=== PATIENT | male | born 1960 | race Caucasian/White ===

== ENCOUNTER 2024-01-03 11:11 | Outpatient (CLI) | payer SELFPAY ==
[2024-01-03 18:23] LABS: Basophils # 0.1 K/mm3 (0-0.2); Basophils % 0.8 % (0.1-2.0); Eosinophils # 0.2 K/mm3 (0.0-0.4); Eosinophils % 2.1 % (0.1-12.0); Hematocrit 47.6 % (42.0-52.0); Hemoglobin 15.5 g/dL (14.1-18.0); Lymphocytes # 2.2 K/mm3 (0.7-4.5); Lymphocytes % 25.7 % (10-50); Mean Corpuscular HGB Conc 32.5 g/dL (31.8-35.4); Mean Corpuscular Hemoglobin 29.8 pg (27.0-31.2); Mean Corpuscular Volume 91.7 fl (80-94); Mean Platelet Volume 9.3 fl (7.4-10.4); Monocytes # 0.6 K/mm3 (0.1-1.0); Monocytes % 6.5 % (1.7-9.3); Neutrophils # 5.7 K/mm3 (1.8-7.8); Neutrophils % 64.9 % (37.0-80.0); Platelet Count 278 K/mm3 (142-424); Red Cell Distribution Width 13.9 % (11.5-17.5); White Blood Count 8.7 K/mm3 (4.8-10.8)
[2024-01-03 19:05] LABS: Hemoglobin A1C 8.3 % (4.0-6.0)
[2024-01-03 19:08] LABS: Alanine Aminotransferase 55 U/L (12-78); Albumin Level 3.9 g/dl (3.5-5.0); Albumin/Globulin Ratio 1.3 (1.1-1.8); Alkaline Phosphatase 88 U/L (38-126); Anion Gap 14.3 mEq/L (5-15); Aspartate Amino Transferase 37 U/L (17-59); Bilirubin,Total 0.6 mg/dl (0.2-1.3); Blood Urea Nitrogen 19 mg/dl (9-20); Calcium 9.2 mg/dl (8.4-10.2); Carbon Dioxide 28 mmol/L (22.0-30.0); Chloride 99 mmol/L (98-107); Chol/HDL Ratio 3.9 (1-3.5); Cholesterol 147 mg/dl (140-200); Estimated Glomerular Filt Rate 85 ml/min (>60); GFR (African American) 103 ML/MIN (>60); Glucose 289 mg/dl (74-100); HDL Cholesterol 38 mg/dl (40-60); Potassium 4.3 mmoL/L (3.5-5.1); Sodium 137 mmol/L (136-145); Total Protein,Serum 6.9 g/dl (6.3-8.2); Triglycerides 103 mg/dl (30-150); VLDL Cholesterol 21 mg/dL (0-40)
[2024-01-03 19:21] LABS: Direct LDL Cholesterol 92.43 mg/dL (100-129)
[2024-01-03 19:30] LABS: 25-OH Vitamin D, Total 62.1 ng/mL (30-100)
[2024-01-03 19:43] LABS: Prostate Specific Ag Screen 0.5 ng/ml (0.0-4.0); Thyroid Stimulating Hormone 1.78 uIU/mL (0.465-4.68)
[2024-01-03 20:02] LABS: Vitamin B12 389 pg/mL (239-931)
== END 2024-01-03 23:59 | disposition home or self-care (01) ==
LOC: LAB.DROPOF 01-04 11:12
PROVIDERS: PCP Nurse Practitioner; Visit Provider Nurse Practitioner
DX: I10 Essential (primary) hypertension (principal); E66.9 Obesity, unspecified; Z68.38 Body mass index [BMI] 38.0-38.9, adult; N40.0 Benign prostatic hyperplasia without lower urinary tract symptoms; I51.7 Cardiomegaly; R06.02 Shortness of breath; R73.01 Impaired fasting glucose
CPT/HCPCS: 80050; 80053; 80061; 82306; 82607; 83036; 84443; 85025; G0103

== ENCOUNTER 2024-01-30 10:58 | Outpatient (CLI) | payer SELFPAY ==
[2024-01-30 19:41] LABS: Anion Gap 17.2 mEq/L (5-15); Blood Urea Nitrogen 23 mg/dl (9-20); Calcium 9.7 mg/dl (8.4-10.2); Carbon Dioxide 25 mmol/L (22.0-30.0); Chloride 102 mmol/L (98-107); Estimated Glomerular Filt Rate 75 ml/min (>60); GFR (African American) 91 ML/MIN (>60); Glucose 97 mg/dl (74-100); Potassium 4.2 mmoL/L (3.5-5.1); Sodium 140 mmol/L (136-145)
== END 2024-01-30 23:59 | disposition home or self-care (01) ==
LOC: LAB.DROPOF 01-31 10:58
PROVIDERS: PCP Nurse Practitioner; Visit Provider Nurse Practitioner
DX: E11.9 Type 2 diabetes mellitus without complications (principal)
CPT/HCPCS: 80048

== ENCOUNTER 2024-05-10 06:12 | Outpatient (CLI) | payer MEDICARE, SELFPAY ==
--- NOTE | 2024-05-10 | CA_ITS ---
APPROVED REPORT Exam: Exercise Treadmill Technologist: Kandice Doran, Ht: 6 ft 0 in Wt: 261 lbs BSA: 2.39 m2 HR: 59 bpm BP: 175/79 mmHg Rhythm: Nsr, poor r wave progression Indications: SOA, ABN EKG Medical History Medical History: HTN, Diabetes Medications: Amlodipine,,,,, Lisinopril,,,,, Metformin,,,,, Furosemide,,,,, Allergies: hydrochlorothiazide Cardiac Risk Factors: HTN, Diabetes, FHX of CAD Stress Test Details Test: Mesfin, Exercise stress testing was performed using a modified Mesfin protocol. HR Resting HR: 65 bpm Max Heart Rate (APMHR): 155 bpm Max HR Achieved: 151 bpm Target HR (85% APMHR): 132 bpm % of APMHR: 97 Recovery HR: 84 bpm HR response to stress: Normal HR response to stress BP Resting BP: 175.0/79 mmHg Max BP: 244/92 mmHg Recovery BP: 167.0/79.0 mmHg BP response to stress: Abnormal hypertensive response to stress. ECG Resting ECG: NSR, poor r wave progression Stress EC.[address] depression Arrhythmia: Occasional PVCs Recovery ECG: Return to baseline within 3 minutes of recovery Recovery Arrhythmia: PVCs Clinical Exercise duration: 06:45 min Highest Stage Achieved: Exercise capacity: 7.0 METs Overall Exercise Capacity for Age: Average Stress ECG Conclusion Pt exercised 6:45 on Mesfin protocol. The patient had average exercise capacity compared to age and sex matched peers. He had a normal HR, but exaggerated hypertensive BP, response to exercise. Max HR: 141 % of PM: 91% Max BP: 244/92 Mets: 7.0 Test stopped due to: fatigue, dyspnea. No chest pain. Ectopy: Occasional PVCs ST changes: 0.[address] depression Conclusion: Average exercise capacity. No significant ischemic ECG changes at peak stress. Myoview images reported separately. Hypertensive BP response to exercise. BP control is recommended. Test Summary REST . . . . . . . Standing REST . . . . . . . Sitting REST 04:23 0.0 0.0 65 . 175/ 79 . . Stage 1 01:00 10.0 1.7 87 . . . . Stage 1 02:00 10.0 1.7 101 . . . . Stage 1 03:00 10.0 1.7 105 . 220/ 90 . . Stage 2 01:00 12.0 2.5 115 . . . . Stage 2 02:00 12.0 2.5 121 . . . . Stage 2 03:00 12.0 2.5 132 . 244/ 92 . . Stage 3 00:45 14.0 3.4 141 . . . Stop exercise at 06:45 RECOVERY 01:00 0.0 0.0 124 . . . . RECOVERY 02:00 0.0 0.0 102 . 216/ 90 . . RECOVERY 03:00 0.0 0.0 90 . 199/ 84 . . RECOVERY 04:00 0.0 0.0 85 . 199/ 84 . . RECOVERY 05:00 0.0 0.0 80 . 167/ 79 . . RECOVERY 05:18 0.0 0.0 81 . 167/ 79 . . Electronically signed by : Hilary Bartholomew MD 05/13/2024 22:49:19
--- NOTE | 2024-05-10 06:20 | NM_ITS ---
APPROVED REPORT Exam: Nuclear Stress Test Indication: high BP..family hx Patient Location: Outpatient Stress Tech: Kandice Doran HI Tech:Lorena SyedringtonDESTIN RT(R)(N) Ht: 6 ft 0 in Wt: 261 lbs HR: 65 bpm BP: 175/79 mmHg BSA: 2.39 m2 Rhythm: NSR TID: 1.16 History: high BP..family hx Procedure: Patient exercised on Mesfin protocol 6:45 minutes and sec, resting heart rate 65 bpm, resting blood pressure 175/79 mmHg, with exercise maximum heart rate achived was 151 bpm which is 97 % of the maximum predicted heart rate and blood pressure was 244/92 mmHg. Test was stopped due to fatigue. Patient denied any complaint of chest pain. Patient has average exercise capacity, achieved 7.0 METs of workload on treadmill, the blood pressure response to exercise was exaggerated. Cardiac Stress and Resting SPECT Images: Cardiac Stress and Resting SPECT images were obtained using technetium 99m Myoview 32.4 mCi stress and 10.13 mCi at rest. Resting and stress imaging in supine and prone position demonstrate no evidence of fixed or reversible perfusion defects. Gated imaging demonstrates normal global and regional LV systolic function. LVEF is calculated at 64%. Conclusion: No evidence of fixed or reversible perfusion defects. Gated imaging demonstrates normal global and regional LV systolic function. LVEF is calculated at 64%. Of note, the patient had a hypertensive BP response to exercise. BP control is recommended. Electronically signed by : Hilary Bartholomew MD 05/13/2024 22:51:08
--- NOTE | 2024-05-10 07:39 | CA_ITS ---
APPROVED REPORT EXAM: Comprehensive 2D, Doppler, and color-flow Echocardiogram Resort Keeper: Lis Johnson RVT Ht: 6 ft 0 in Wt: 265lbs BSA: 2.40 BP: 166/83 mmHg Indications: CP,CARDIOMEGALY,VERN,ABN EKG,DM 2D Dimensions LA Volume 75.40 mL LA Volume Index 31.42 mL/m2 (M/F) 16-34 M-Mode Dimensions RVDd 3.15 cm (0.9-2.6) LA Diam 3.11 cm (1.9-4.0) LVDd 3.54 cm (3.5-5.7) LVDs 2.41 cm (3.5-5.7) IVSd 1.97 cm (0.6-1.1) PWd 0.74 cm (0.6-1.1) EF (Teich) 61.00% FS 31.90% EDV (Teich) 52.30 mL ESV (Teich) 20.40 mL LV Diastology E Decel Time 273 (160-240 msec) E/A Ratio 0.8 Aortic Valve BJ Index 1.41 cm2/m2 AoV Peak Jairo. 124.0 (50-130 cm/s) AO Peak GR. 6.20 mmHg AO Mean GR. 3.80 (<5 mmHg) AO VTI 27.1 (18-25 cm) BJ (VTI) 3.47 (2.5-4.5 cm2) Mitral Valve MV E Max Jairo. 72.0 (40-130 cm/s) MV A Velocity 89.0 (40-130 cm/s) E/A Ratio 0.81 MV PHT 80.0 ms Pulmonary Valve PV Peak Velocity 78.0 (50-150 cm/s) Tricuspid Valve TR P. Velocity 284.00 cm/s RAP Estimate 10.00 mmHg RVSP 42.30 mmHg Left Ventricle The left ventricle is normal size. The left ventricular systolic function is normal. The left ventricular ejection fraction is within the normal range. There is increased LV wall thickness. There is normal LV segmental wall motion. Transmitral Doppler flow pattern suggests impaired LV relaxation. LVEF is 55%. Right Ventricle Right ventricle is mildly dilated. The right ventricular systolic function is normal. Atria The left atrium size is normal. The right atrium size is normal. There is no Doppler evidence of interatrial shunt. Aortic Valve The aortic valve opens well. There is no aortic valvular stenosis. No aortic regurgitation is present. Mitral Valve The mitral valve is normal in structure. No evidence of mitral valve stenosis. Trace mitral regurgitation. Tricuspid Valve The tricuspid valve leaflets are thin and pliable. Mild tricuspid regurgitation. RVSP is 30-35 mmHg. Pulmonic Valve The pulmonary valve is normal in structure. Trace pulmonic regurgitation. Great Vessels The aortic root is normal in size. The ascending aorta is normal in size. IVC is normal in size and collapses >50% with inspiration. Pericardium There is no pericardial effusion. Other Information Study Quality: Technically Difficult Conclusion Technically difficult study due to poor acoustic windows. Normal LV size and systolic function. Mild RV dilation with normal RV function. Mild TR. RVSP 30-35 mmHg. Electronically signed by : Hilary Bartholomew MD 05/19/2024 01:15:53
[2024-05-10] MEDS: ISOTOPE MYOVIEW (PER STUDY) 1 DOSE IV (09:10)
[2024-05-10] MEDS: SODIUM CHLORIDE 0.9% 10ML SYR (RAD ONLY) 10 ML IV ×2 (09:10)
== END 2024-05-10 23:59 | disposition home or self-care (01) ==
LOC: RAD 06:13
PROVIDERS: PCP Family Medicine; Visit Provider Physician Assistant
DX: R94.31 Abnormal electrocardiogram [ECG] [EKG] (principal); R06.00 Dyspnea, unspecified
CPT/HCPCS: 78452; 93017; 93018; 93306; A9502

== ENCOUNTER → 2024-09-18 07:15 | Outpatient (CLI) | payer MEDICARE, SELFPAY | LOC: SL 07:16 | PROVIDERS: PCP Physician Assistant; Visit Provider Physician Assistant | DX: G47.33 Obstructive sleep apnea (adult) (pediatric) (principal); I10 Essential (primary) hypertension; E66.01 Morbid (severe) obesity due to excess calories; Z68.39 Body mass index [BMI] 39.0-39.9, adult | CPT/HCPCS: G0399 ==

== ENCOUNTER 2024-10-01 21:24 | Outpatient (CLI) | payer MEDICARE, SELFPAY ==
[2024-10-01 21:20] LABS: Anion Gap 12.1 mEq/L (5-15); Blood Urea Nitrogen 16 mg/dl (9-20); Calcium 9.1 mg/dl (8.4-10.2); Carbon Dioxide 28 mmol/L (22.0-30.0); Chloride 105 mmol/L (98-107); Estimated Glomerular Filt Rate 97 ml/min (>60); GFR (African American) 117 ML/MIN (>60); Glucose 101 mg/dl (74-100); Potassium 4.1 mmoL/L (3.5-5.1); Sodium 141 mmol/L (136-145)
[2024-10-01 22:06] LABS: Basophils % 0.4 % (0.1-2.0); Eosinophils # 0.1 K/mm3 (0.0-0.4); Eosinophils % 1.2 % (0.1-12.0); Hematocrit 47.1 % (42.0-52.0); Hemoglobin 15.8 g/dL (14.1-18.0); Lymphocytes # 2.4 K/mm3 (0.7-4.5); Lymphocytes % 30.7 % (10-50); Mean Corpuscular HGB Conc 33.5 g/dL (31.8-35.4); Mean Corpuscular Hemoglobin 29.3 pg (27.0-31.2); Mean Corpuscular Volume 87.2 fl (80-94); Mean Platelet Volume 10.3 fl (7.4-10.4); Monocytes # 0.6 K/mm3 (0.1-1.0); Monocytes % 8.2 % (1.7-9.3); Neutrophils # 4.6 K/mm3 (1.8-7.8); Neutrophils % 59.1 % (37.0-80.0); Platelet Count 295 K/mm3 (142-424); Red Cell Distribution Width 13.2 % (11.5-17.5); White Blood Count 7.8 K/mm3 (4.8-10.8)
[2024-10-01 22:53] LABS: Albumin Level 4.2 g/dl (3.5-5.0); Chloride 103 mmol/L (98-107); Potassium 4.3 mmoL/L (3.5-5.1); Sodium 140 mmol/L (136-145)
[2024-10-01 22:55] LABS: Blood Urea Nitrogen 17 mg/dl (9-20); Estimated Glomerular Filt Rate 85 ml/min (>60); GFR (African American) 102 ML/MIN (>60)
[2024-10-01 22:56] LABS: Alanine Aminotransferase 29 U/L (12-78); Alkaline Phosphatase 73 U/L (38-126); Anion Gap 13.3 mEq/L (5-15); Aspartate Amino Transferase 23 U/L (17-59); Bilirubin,Direct 0.3 mg/dl (0.0-0.4); Bilirubin,Total 1.3 mg/dl (0.2-1.3); Bilirubin,Unconjugated 0.9 mg/dL (0.0-1.1); Calcium 9.4 mg/dl (8.4-10.2); Carbon Dioxide 28 mmol/L (22.0-30.0); Chol/HDL Ratio 3.9 (1-3.5); Cholesterol 147 mg/dl (140-200); Glucose 101 mg/dl (74-100); HDL Cholesterol 38 mg/dl (40-60); Magnesium 1.9 mg/dl (1.6-2.3); Total Protein,Serum 6.8 g/dl (6.3-8.2); Triglycerides 65 mg/dl (30-150); VLDL Cholesterol 13 mg/dL (0-40)
[2024-10-01 23:08] LABS: Direct LDL Cholesterol 92.03 mg/dL (100-129)
[2024-10-01 23:12] LABS: Free T4 (Free Thyroxine) 1.45 ng/dl (0.78-2.19)
[2024-10-01 23:22] LABS: Hemoglobin A1C 5.6 % (4.0-6.0)
[2024-10-01 23:26] LABS: Thyroid Stimulating Hormone 1.34 uIU/mL (0.465-4.68)
== END 2024-10-01 23:59 | disposition home or self-care (01) ==
LOC: LAB 21:25
PROVIDERS: Family Medicine; PCP Physician Assistant; Visit Provider Physician Assistant
DX: R60.0 Localized edema (principal); E11.9 Type 2 diabetes mellitus without complications; E66.01 Morbid (severe) obesity due to excess calories; Z68.39 Body mass index [BMI] 39.0-39.9, adult; G47.33 Obstructive sleep apnea (adult) (pediatric); I10 Essential (primary) hypertension; Z82.49 Family history of ischemic heart disease and other diseases of the circulatory system
CPT/HCPCS: 80048; 80061; 80076; 83036; 83735; 84439; 84443; 85025

== ENCOUNTER 2024-10-08 11:25 | Outpatient (CLI) | payer MEDICARE, SELFPAY ==
[2024-10-08 21:17] LABS: Albumin Level 4.5 g/dl (3.5-5.0); Chloride 104 mmol/L (98-107); Potassium 3.9 mmoL/L (3.5-5.1); Sodium 137 mmol/L (136-145)
[2024-10-08 21:20] LABS: Alanine Aminotransferase 25 U/L (12-78); Albumin/Globulin Ratio 1.8 (1.1-1.8); Alkaline Phosphatase 81 U/L (38-126); Anion Gap 10.9 mEq/L (5-15); Aspartate Amino Transferase 24 U/L (17-59); Bilirubin,Total 1.5 mg/dl (0.2-1.3); Blood Urea Nitrogen 15 mg/dl (9-20); Calcium 8.9 mg/dl (8.4-10.2); Carbon Dioxide 26 mmol/L (22.0-30.0); Estimated Glomerular Filt Rate 97 ml/min (>60); GFR (African American) 117 ML/MIN (>60); Globulin 2.5 g/dL (1.3-3.2); Glucose 112 mg/dl (74-100)
== END 2024-10-08 23:59 | disposition home or self-care (01) ==
LOC: LAB.DROPOF 10-10 09:53
PROVIDERS: PCP Family Medicine; Visit Provider Family Medicine
DX: I10 Essential (primary) hypertension (principal); E11.9 Type 2 diabetes mellitus without complications
CPT/HCPCS: 80053

== ENCOUNTER 2025-02-25 10:26 | Outpatient (CLI) | payer MEDICARE, SELFPAY ==
[2025-02-25 15:47] LABS: Alanine Aminotransferase 34 U/L (12-78); Albumin Level 4.4 g/dl (3.5-5.0); Albumin/Globulin Ratio 1.8 (1.1-1.8); Alkaline Phosphatase 69 U/L (38-126); Anion Gap 15.2 mEq/L (5-15); Aspartate Amino Transferase 47 U/L (17-59); Bilirubin,Total 1.0 mg/dl (0.2-1.3); Blood Urea Nitrogen 18 mg/dl (9-20); Calcium 9.6 mg/dl (8.4-10.2); Carbon Dioxide 24 mmol/L (22.0-30.0); Chloride 106 mmol/L (98-107); Creatinine,Serum 0.90 mg/dl (0.66-1.25); Estimated Glomerular Filt Rate 85 ml/min (>60); GFR (African American) 102 ML/MIN (>60); Globulin 2.5 g/dL (1.3-3.2); Glucose 125 mg/dl (74-100); Potassium 4.2 mmoL/L (3.5-5.1); Sodium 141 mmol/L (136-145); Total Protein,Serum 6.9 g/dl (6.3-8.2)
== END 2025-02-25 23:59 | disposition home or self-care (01) ==
LOC: LAB.DROPOF 02-26 12:22
PROVIDERS: PCP Family Medicine; Visit Provider Family Medicine
DX: E11.9 Type 2 diabetes mellitus without complications (principal); I10 Essential (primary) hypertension
CPT/HCPCS: 80053; 82043; 82570